=== PATIENT | female | born 1955 | race Caucasian/White ===

== ENCOUNTER → 2019-12-07 | Outpatient (CLI) | payer OTHER ==
[~2019-12-07] MED LIST: ADULT LOW DOSE81 MG; LOPRESSOR 50 MG50 M1 OR; QUINU10 PD OR; ZOCOR80 MG OR
== END ==
LOC: SJCVC 10:56
DX: R00.1 Bradycardia, unspecified (principal); I25.10 Atherosclerotic heart disease of native coronary artery without angina pectoris; I10 Essential (primary) hypertension; E78.00 Pure hypercholesterolemia, unspecified; I73.9 Peripheral vascular disease, unspecified

== ENCOUNTER → 2020-07-23 | Outpatient (CLI) | payer OTHER | LOC: SJCVCIMAG 06-18 08:35 | PROVIDERS: ATTEND Internal Medicine Cardiovascular Disease | DX: R94.31 Abnormal electrocardiogram [ECG] [EKG] (principal); I11.9 Hypertensive heart disease without heart failure; I25.10 Atherosclerotic heart disease of native coronary artery without angina pectoris; E78.00 Pure hypercholesterolemia, unspecified; I73.9 Peripheral vascular disease, unspecified; Z95.1 Presence of aortocoronary bypass graft; Z79.82 Long term (current) use of aspirin; Z79.899 Other long term (current) drug therapy; Z87.891 Personal history of nicotine dependence ==

== ENCOUNTER → 2021-05-29 | Outpatient (CLI) | payer OTHER | LOC: SJCVCIMAG 09:23 | PROVIDERS: ATTEND Internal Medicine Cardiovascular Disease | DX: I25.9 Chronic ischemic heart disease, unspecified (principal); I25.10 Atherosclerotic heart disease of native coronary artery without angina pectoris; I10 Essential (primary) hypertension; E78.00 Pure hypercholesterolemia, unspecified; I73.9 Peripheral vascular disease, unspecified; Z95.1 Presence of aortocoronary bypass graft; Z79.82 Long term (current) use of aspirin; Z79.899 Other long term (current) drug therapy; Z87.891 Personal history of nicotine dependence; Z72.89 Other problems related to lifestyle ==

== ENCOUNTER 2021-06-08 07:32 | Observation (INO) | payer OTHER ==
[~2021-06-08] VITALS: Ht 172.7 cm; Wt 75.9 kg
--- NOTE | 2021-06-08 12:06 | EKG ---
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: [facility] : 1955 Requested By: Porter Veliz Order Number: [id number] MD: Mark Moses Measurements Intervals [place] Rate: 46 P: WI: QRS: 56 QRSD: 108 T: 32 QT: 452 QTc: 396 Interpretive Statements Atrial fibrillation Borderline ST elevation, lateral leads No previous ECG available for comparison Electronically Signed On 06-08-2021 12:05:55 PROPERTY VALUER by Mark Moses [email or web address] <ELECTRONICALLY SIGNED> By: Mark Moses MD, [facility] 06/08/21 1205 1145 1145 Mark Moess MD, FACC /EPI
[2021-06-08] MEDS ORDERED: ADULT LOW DOSE81 MG PO (12:15)
[2021-06-08] MEDS ORDERED: TOPROL XL50 MG PO (12:15)
[2021-06-08] MEDS ORDERED: ACCUPRIL10 MG PO (12:16)
[2021-06-08] MEDS ORDERED: CRESTOR40 MG PO (12:17)
--- NOTE | 2021-06-08 14:20 | EKG ---
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 06/08/21 1420 1220 1220 Mark Moses MD, FACC /EPI
--- NOTE | 2021-06-08 17:25 | CATHLAB ---
[facility] [place] [address] INVASIVE PROCEDURE REPORT Name: ALBERTO GAFFNEY [id number] Admission: 06/08/21 Attend Phys: Porter Veliz MD Discharge: Date of : 51 Report #: [id number] THIS REPORT FOR: cc: Michael Rosa MD, David A. MD Park, Jin S. MD ~ APPROVED REPORT Study performed: 06/08/2021 14:28:28 Patient Details Patient Status: Out-Patient Room #: The patient is a 65 year-old female Event Personnel Porter Veliz Supervisor Garage, Manda Castillo RTR Monitor, Estefanía Tobias RTR Scrub, Violette Garcia RN metal mine inspector Performed Art Access - R femoral artery* Left Heart Cath w/or w/o Coronaries 0032277 [facility] w/wo Plasty Single Left Main 472017 29999 Initial Mod Sed Same Phys/QHP Gr5y 243092 78956 Mod Sed Same Phys/QHP Ea 022670 Hemostasis w/ Mynx Indication Dyspnea, Positive stress test, Chest pain Risk Factors Hypercholesterolemia, Coronary Artery DiseaseHypertension Previous Procedures/Diagnoses Previous CABG Procedure Narrative The Right Groin^ was infiltrated with 1% Lidocaine subcutaneous anesthesia. A 4F sheath was inserted into the RFA^. Coronary angiography was performed using coronary diagnostic catheters. The right coronary system was accessed and visualized with a JR4 catheter. The left coronary system was accessed and visualized with a JL4 catheter. There was no hematoma. Intraoperative Conscious Sedation Sedation start time: 1442 Case end Time: 1620 [facility] [address] [place] [address] INVASIVE PROCEDURE REPORT Name: ALBERTO GAFFNEY Room #: REG [facility]#: [id number] Admission: 06/08/21 Attend Phys: Porter Veliz MD Discharge: Date of : 51 Report #: [id number] Fentanyl 100 mcg Versed 1 mg Fluoro Time: 26.10 minutes Dose: DAP 91942.20 cGycm2 3964 mGy Contrast Type and Amount: Omnipaque 330 ml Coronary Angiography The patient's coronary anatomy is left dominant. Diagnostic Cath Left Main Left main artery is a large caliber vessel with a severe occlusion at the distal segment, 95%. LAD There is a patent FRAGA graft with an end-to-side anastomosis to the LAD/diagonal artery segment. Circumflex There is a patent sequential free radial artery conduit with a bxzp-na-pfmb anastomosis to OM1 and end-to-side anastomosis to OM 2. There is compromised flow to the [place] left circumflex artery, OM 3 and distal left PDA. Right Coronary This is a small, nondominant vessel. Left Ventriculography Left Ventriculography was not performed. Ejection Fraction was 55-60% based off patient's Echocardiogram. An LVEDP was measured and there is no gradient across the outflow tract. Hemodynamics The aortic pressure is 134/51 mmHg with a mean of 43 mmHg. The left ventricular pressure is 111/5 mmHg with a mean of mmHg. The left ventricular end diastolic pressure is 21 mmHg. PCI Technique Lesion Percutaneous coronary intervention was performed on the Distal left main/proximal circumflex artery segment. The lesion stenosis prior to intervention was 95% with GRICELDA 2 flow. A VISTA 6FR XB 3.5 #[id number] Guide Catheter was used to engage the LEFT MAIN-CIRC ostium. A Luge Wire .014 x 182CM #[id number] Interventional Guidewire was used to cross the lesion. BALLOON DILATION A Balloon catheter BO.LT RX 2.0 x12 #[id number] was inserted and inflated up to 14.00atm for 24seconds. Additional Inflation: 14.00atm for 14seconds. Additional Inflation: 14.00atm for 11seconds. 2.75X12 TREK BALLOON ALSO 2ND USED: 6ATM FOR 6SEC/MIN- 6 ATME FOR 7 SEC/MIN - 14 BUBBA FOR 38 SEC. A 3RD BALLOON USED NC TREK 2.5X15: 12 BUBBA FOR 6SEC/MIN - 18 BUBBA FOR 18 SEC/MIN-18 BUBBA FOR 11 SEC/MIN. [facility] [address] [place] [address] INVASIVE PROCEDURE REPORT Name: GAFFNEYALBERTO M [facility] [id number] Admission: 06/08/21 Attend Phys: Porter Veliz MD Discharge: Date of : 51 Report #: [id number] STENT DEPLOYMENT A stent RESOLUTE ANTWON RX 3.0 X 22 #[id number] was inserted and inflated up to 14.00atm for 20seconds. Additional Inflation: 14.00atm for 10seconds. POST STENT DEPLOYMENT BALLOON DILATION A Balloon catheter Euphora NC RX 3.0 x 12 #[id number] was inserted and inflated up to 18atm for 18seconds. Additional Inflation: 18.00atm for 16seconds. Final angiography reveals 10 % stenosis with GRICELDA 3 flow. Conclusion 1. PCI performed with placement of a drug-eluting stent into the distal left main stenosis, extending to the proximal left circumflex artery. 2. There is a patent FRAGA graft with an end-to-side anastomosis to the LAD/diagonal artery segment. 3. The left circumflex artery is a dominant vessel. 4. There is a patent sequential free radial artery conduit to OM1 and OM 2. However, there is compromised flow to the left circumflex artery, OM 3 and left PDA. 5. There is normal LV systolic function. 6. Recommend aggressive risk factor management and dual antiplatelet therapy. <ELECTRONICALLY SIGNED> By: Porter Veliz MD 06/08/211723 23 23 Porter Veliz MD /INF
[2021-06-08 17:35] VITALS: BP 133/71
--- NOTE | 2021-06-08 18:41 | NUR ---
PATIENT ADMITTED TO CCU POST LEFT HEART CATH. 1 STENT PLACED TO PROXIMAL CIRC. PATIENT ON BEDREST UNTIL 1999. PLACED ON MONTIOR. SINUS PRANAY. RIGHT GROIN SITE CDI.
[2021-06-08 19:47] VITALS: BP 127/60
--- NOTE | 2021-06-08 20:57 | NUR ---
PT UP OUT OF BED AT 2044 AT THAT TIME RN WALKED IN ROOM. PT STATED THAT HE HAS HAD "HORRIBLE SERVICE" SINCE HE ARRIVED. 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 RN OFFERED A TURKEY SANDWHICH MEAL AND IT WAS TAKEN TO PT'S ROOM. WILL CONTINUE TO MONITOR.
[2021-06-08 23:30] VITALS: BP 136/57
[2021-06-09 04:21] VITALS: BP 124/62
[2021-06-09 05:31] LABS: HEMATOCRIT 38.8 % (42.0-52.0); HEMOGLOBIN 13.2 gm/dL (14.0-18.0); MCH 32.1 pg (26.0-34.0); MCV 94.6 fL (80.0-100.0); RBC 4.1 mil/uL (4.50-6.00); WBC 5.9 thou/uL (4.0-11.0)
[2021-06-09 05:56] LABS: ALBUMIN 3.4 g/dL (3.4-5.0); CALCIUM 8.7 mg/dL (8.5-10.1); POTASSIUM 4.2 mmol/L (3.5-5.1); TOTAL BILIRUBIN 0.4 mg/dL (0.2-1.0); TOTAL PROTEIN 6.8 g/dL (6.4-8.2)
[2021-06-09] MEDS ORDERED: EFFIENT10 MG PO ×2 (07:25→08:03)
--- NOTE | 2021-06-09 07:49 | EKG ---
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
--- NOTE | 2021-06-09 07:51 | EKG ---
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: : 1955 Requested By: Porter Veliz Order Number: [id number] : Mark Moses Measurements Intervals [place] Rate: 55 P: 44 MT: 153 QRS: 82 QRSD: 100 T: 50 QT: 444 QTc: 425 Interpretive Statements Sinus rhythm Borderline right axis deviation Compared to ECG 06/08/2021 17:08:51 Sinus bradycardia no longer present Electronically Signed On 06-09-2021 7:50:58 SYSTEMS DEVELOPMENT MANAGER by Mark Moses [email or web address] <ELECTRONICALLY SIGNED> By: Mark Moses MD, [facility] 06/09/21 0750 0717 6 Mark Moses MD, FACC /EPI
[2021-06-09 08:12] VITALS: BP 128/62
[2021-06-09 08:35] VITALS: BP 128/62
--- NOTE | 2021-06-09 10:39 | NUR ---
PATIENT IN GOOD MOOD THIS MORNING AT SHIFT CHANGE. UPDATED HIM ON PLAN FOR DISCHARGE TODAY. HE FEELS WELL AND IS ANXIOUS TO GO HOME. RESTING COMFORTABLY WAITING FOR BREAKFAST. OFFERED COFFEE. RIGHT GROIN SITE SOFT, DRESSING CDI. DISCUSSED DISCHARGE INSTRUCTIONS AND FOLLOW UP APPOINTMENT. REVIEWED MEDICAITONS WITH NO QUESTIONS. IV DISCONTINUED. TELEMONITOR OFF. TO TRANSPORT HOME.
== END 2021-06-09 10:10 | disposition home or self-care (01) ==
LOC: EDSEX 07:32 → CATH 07:32 → 2N 17:34
PROVIDERS: ADMIT Internal Medicine Cardiovascular Disease; ATTEND Internal Medicine Cardiovascular Disease
DX: I25.110 Atherosclerotic heart disease of native coronary artery with unstable angina pectoris (principal); I10 Essential (primary) hypertension; E78.00 Pure hypercholesterolemia, unspecified; Z79.82 Long term (current) use of aspirin; Z87.891 Personal history of nicotine dependence